=== PATIENT | male | born 1960 | race Caucasian/White ===

== ENCOUNTER → 2017-08-03 | Outpatient (CLI) | payer OTHER ==
[~2017-08-03] MED LIST: AXIRON TP; CHLO1CAP PEG; HYDR-3240 PO; HYDR-3245 PO; LINA290C PO; METH750T2 PO; MORPHINE; MORPHINE IR PO; OMEP-110 PO; PARO40TA61 PO; PRAV40TA2 PO; PREG150C PO; PROMETHAZINE PO; RISP0.5T3 PO; [UNRECOGNIZED DRUG - REMARK]
== END | disposition home or self-care (01) ==
LOC: CFH 08:00
PROVIDERS: ATTEND Registered Nurse Registered Nurse First Assistant
DX: M47.22 Other spondylosis with radiculopathy, cervical region (principal); M48.02 Spinal stenosis, cervical region
CPT/HCPCS: 72050; 72141

== ENCOUNTER → 2017-10-28 | Outpatient (CLI) | payer OTHER | END | disposition home or self-care (01) | LOC: CFH 14:47 | PROVIDERS: ATTEND Registered Nurse Registered Nurse First Assistant | DX: M54.16 Radiculopathy, lumbar region (principal); M40.47 Postural lordosis, lumbosacral region; M47.896 Other spondylosis, lumbar region | CPT/HCPCS: 72114; 72148 ==

== ENCOUNTER 2018-06-21 05:42 | Inpatient (IN) | payer OTHER ==
[~2018-06-21] VITALS: Ht 175.3 cm; Wt 81.4 kg
[~2018-06-21 05:42] MED LIST changes: +LINA145C PO; +TEST5GEL17 TP; +paxil PO; +statin PO
[2018-06-21] MEDS ORDERED: LACTATED RINGERS 1,000 ML IV SCH (06:06)
[2018-06-21] MEDS ORDERED: PREG150C PO (06:18)
[2018-06-21] MEDS ORDERED: LINA290C PO (06:18)
[2018-06-21] MEDS ORDERED: NICO-485 TD (06:18)
[2018-06-21] MEDS ORDERED: PARO40TA3 PO (06:18)
[2018-06-21] MEDS ORDERED: OMEP-110 PO (06:18)
[2018-06-21] MEDS ORDERED: PRAV40TA2 PO (06:18)
[2018-06-21] MEDS ORDERED: RISP1TAB3 PO (06:18)
[2018-06-21] MEDS ORDERED: ALPR0.254 PO (06:19)
[2018-06-21] MEDS ORDERED: THROMBIN 5,000 UNIT VIAL TP ONE (06:52)
[2018-06-21] MEDS ORDERED: BUPIVACAINE/PF-EPI 0.5% 1:200K ONE (06:52)
[2018-06-21] MEDS ORDERED: BACITRACIN 50,000 UNIT ONE (06:52)
[2018-06-21] MEDS ORDERED: FENTANYL PF 250 MCG/5ML ONE (07:23)
[2018-06-21] MEDS ORDERED: PROPOFOL 50 ML ONE (07:24)
[2018-06-21] MEDS ORDERED: PROCHLORPERAZINE 5 MG/ML, 2ML IV PRN (07:30)
[2018-06-21] MEDS ORDERED: HALOPERIDOL 5 MG/ML IV PRN ×2 (07:30)
[2018-06-21] MEDS ORDERED: hydrALAzine 20 MG/ML, 1ML IV PRN (07:30)
[2018-06-21] MEDS ORDERED: GABAPENTIN 300 MG CAPSULE PO ONE (07:30)
[2018-06-21] MEDS ORDERED: FENTANYL PF 100 MCG/2ML IV PRN (07:30)
[2018-06-21] MEDS ORDERED: HYDROmorphone 2 MG/ML, 1ML IVPush PRN (07:30)
[2018-06-21] MEDS ORDERED: MEPERIDINE/PF 25MG/0.5ML IVPush PRN (07:30)
[2018-06-21] MEDS ORDERED: PROMETHAZINE 25 MG/ML, 1ML IV PRN (07:30)
[2018-06-21] MEDS ORDERED: METOPROLOL 1 MG/ML, 5ML IV PRN (07:30)
[2018-06-21] MEDS ORDERED: LABETALOL 5MG/ML, 20ML IV PRN (07:30)
[2018-06-21] MEDS ORDERED: ACETAMINOPHEN 500 MG TABLET PO ONE (07:30)
[2018-06-21] MEDS ORDERED: OXYcodone 5 MG/5 ML ORAL.SOL UDC PO PRN (07:30)
[2018-06-21] MEDS ORDERED: DIPHENHYDRAMINE 50 MG/ML, 1ML IVPush PRN (07:30)
[2018-06-21] MEDS ORDERED: SUCCINYLCHOLINE 20 MG/ML, 10ML ONE (07:34)
[2018-06-21] MEDS ORDERED: CEFAZOLIN 1,000 MG ONE (07:34)
[2018-06-21] MEDS ORDERED: GLYCOPYRROLATE 0.2MG/1ML, 5ML ONE (07:34)
[2018-06-21] MEDS ORDERED: ROCURONIUM 10MG/ML,5ML ONE (07:34)
[2018-06-21] MEDS ORDERED: NEOSTIGMINE 1 MG/ML, 10ML ONE (07:34)
[2018-06-21] MEDS ORDERED: DEXAMETHASONE 4 MG/ML, 1ML ONE (07:34)
[2018-06-21] MEDS ORDERED: FENTANYL PF 100 MCG/2ML ONE (08:50)
[2018-06-21] MEDS ORDERED: OXYcodone/APAP 5/325MG TABLET PO PRN (09:30)
[2018-06-21] MEDS ORDERED: MEPERIDINE/PF 100 MG/ML IM PRN (09:30)
[2018-06-21] MEDS ORDERED: BISACODYL 10 MG SUPP PR PRN (09:30)
[2018-06-21] MEDS ORDERED: DIPHENHYDRAMINE 25 MG CAPSULE PO PRN (09:30)
[2018-06-21] MEDS ORDERED: HYDROmorphone PCA 30 MG/30 ML IV PRN (09:30)
[2018-06-21] MEDS ORDERED: TIZANIDINE 2MG TABLET PO PRN (09:30)
[2018-06-21] MEDS ORDERED: PROMETHAZINE 25 MG/ML, 1ML IM PRN (09:30)
[2018-06-21] MEDS ORDERED: ONDANSETRON 2MG/ML, 2ML IVPush PRN (09:30)
[2018-06-21] MEDS ORDERED: PHARMACY MAY ADJ FOR RENAL FX MC PRN (09:30)
[2018-06-21] MEDS ORDERED: HYDROcodone/APAP 10/325 MG TABLET PO PRN (09:30)
[2018-06-21] MEDS ORDERED: ALPRAZOLAM 0.25 MG PO PRN (09:30)
[2018-06-21] MEDS ORDERED: MAGNESIUM HYDROXIDE 8%, 30ML UDC PO PRN (09:30)
[2018-06-21] MEDS ORDERED: OXYcodone 5 MG/5 ML ORAL.SOL UDC ONE (10:08)
[2018-06-21 11:25] VITALS: BP 116/70
[2018-06-21] MEDS ORDERED: ALPRAZOLAM MC SCH (11:30)
[2018-06-21 12:56] VITALS: BP 112/71
[2018-06-21] MEDS: CEFAZOLIN PMX 1GM/50ML 50 ML IVPB SCH (16:46)
[2018-06-21] MEDS: NS + 20MEQ KCL 1,000 ML IV SCH (16:46)
[2018-06-21 20:09] VITALS: BP 114/73
[2018-06-21] MEDS: SODIUM CHLORIDE FLUSH 10ML SYR IVF SCH (21:15)
[2018-06-21] MEDS: PRAVASTATIN 40 MG TABLET PO SCH (21:15)
[2018-06-22 00:01] VITALS: BP 109/69
[2018-06-22] MEDS: CEFAZOLIN PMX 1GM/50ML 50 ML IVPB SCH (00:39)
[2018-06-22] MEDS: NS + 20MEQ KCL 1,000 ML IV SCH ×2 (03:19→15:04)
[2018-06-22 03:57] VITALS: BP 105/68
[2018-06-22] MEDS ORDERED: OMEPRAZOLE 20 MG CAPSULE.DR ONE (06:02)
[2018-06-22] MEDS: OMEPRAZOLE 20 MG CAPSULE.DR PO SCH (06:03)
[2018-06-22 07:45] VITALS: BP 109/69
[2018-06-22] MEDS: TEMPLATE NON-FORMULARY MED. (Linaclotide** (Linzess**) 290 MCG) PO SCH (09:00)
[2018-06-22] MEDS: SENNA/DOCUSATE TABLET PO SCH (09:00)
[2018-06-22] MEDS: SODIUM CHLORIDE FLUSH 10ML SYR IVF SCH ×2 (09:00→21:00)
[2018-06-22] MEDS: NICOTINE 7 MG/24 HR PATCH.TD24 TD SCH (09:30)
[2018-06-22] MEDS ORDERED: HYDROmorphone 2 MG/ML, 1ML ONE ×2 (12:42→17:19)
[2018-06-22] MEDS: HYDROmorphone 1 MG/ML, 1ML IVPush PRN ×2 (12:45→17:22)
[2018-06-22 13:34] VITALS: BP 128/80
[2018-06-22] MEDS ORDERED: METOCLOPRAMIDE 5 MG/ML, 2ML IVPush PRN (16:30)
[2018-06-22] MEDS ORDERED: SCOPOLAMINE PATCH, 1.5MG PATCH.TD72 TD ONE (16:30)
[2018-06-22 20:10] VITALS: BP 136/74
[2018-06-22] MEDS: PREGABALIN 150 MG CAPSULE PO SCH (22:00)
[2018-06-22] MEDS: RISPERIDONE 1 MG TABLET PO SCH (22:01)
[2018-06-22] MEDS: PAROXETINE 20 MG TABLET PO SCH (22:01)
[2018-06-22] MEDS: PRAVASTATIN 40 MG TABLET PO SCH (22:01)
[2018-06-23] MEDS: NS + 20MEQ KCL 1,000 ML IV SCH ×3 (00:11→20:56)
[2018-06-23] MEDS ORDERED: HYDROmorphone 2 MG/ML, 1ML ONE (02:25)
[2018-06-23] MEDS: HYDROmorphone 1 MG/ML, 1ML IVPush PRN (02:29)
[2018-06-23 02:35] VITALS: BP 123/76
[2018-06-23 07:00] VITALS: BP 117/72
[2018-06-23] MEDS: HYDROmorphone 2MG TABLET PO PRN ×3 (08:59→20:56)
[2018-06-23] MEDS: PREGABALIN 150 MG CAPSULE PO SCH (08:59)
[2018-06-23] MEDS: SENNA/DOCUSATE TABLET PO SCH (08:59)
[2018-06-23] MEDS: OMEPRAZOLE 20 MG CAPSULE.DR PO SCH (08:59)
[2018-06-23] MEDS: TEMPLATE NON-FORMULARY MED. (Linaclotide** (Linzess**) 290 MCG) PO SCH (09:00)
[2018-06-23] MEDS: PAROXETINE 20 MG TABLET PO SCH (09:00)
[2018-06-23] MEDS: RISPERIDONE 1 MG TABLET PO SCH (09:00)
[2018-06-23] MEDS: SODIUM CHLORIDE FLUSH 10ML SYR IVF SCH ×2 (09:00→20:57)
[2018-06-23] MEDS: NICOTINE 7 MG/24 HR PATCH.TD24 TD SCH (09:01)
[2018-06-23 13:34] VITALS: BP 94/61
[2018-06-23 20:00] VITALS: BP 103/66
[2018-06-23] MEDS: PRAVASTATIN 40 MG TABLET PO SCH (20:56)
[2018-06-23] MEDS ORDERED: PAROXETINE 20 MG TABLET PO SCH (21:00)
[2018-06-23] MEDS ORDERED: RISPERIDONE 1 MG TABLET PO SCH (21:00)
[2018-06-24 00:45] VITALS: BP 109/66
[2018-06-24] MEDS: HYDROmorphone 2MG TABLET PO PRN (05:31)
[2018-06-24] MEDS: NS + 20MEQ KCL 1,000 ML IV SCH (07:00)
[2018-06-24 07:05] VITALS: BP 126/85
[2018-06-24] MEDS: PREGABALIN 150 MG CAPSULE PO SCH (08:27)
[2018-06-24] MEDS: OMEPRAZOLE 20 MG CAPSULE.DR PO SCH (08:27)
[2018-06-24] MEDS: SENNA/DOCUSATE TABLET PO SCH (08:28)
[2018-06-24] MEDS: NICOTINE 7 MG/24 HR PATCH.TD24 TD SCH (08:30)
[2018-06-24] MEDS: SODIUM CHLORIDE FLUSH 10ML SYR IVF SCH (08:34)
[2018-06-24] MEDS: TEMPLATE NON-FORMULARY MED. (Linaclotide** (Linzess**) 290 MCG) PO SCH (08:34)
[2018-06-24] MEDS ORDERED: HYDR2TAB29 PO (09:19)
[2018-06-24] MEDS ORDERED: TIZA2CAP2 PO (09:21)
[2018-06-24 09:49] VITALS: BP 132/81
== END 2018-06-24 10:33 | disposition home or self-care (01) | DRG 460 ==
LOC: ORIP 05:42 → 4NOR 11:16 → DCLOUNGE 06-24 10:22
PROVIDERS: ADMIT Neurological Surgery; ATTEND Neurological Surgery
PROC: 0SB40ZZ Excision of Lumbosacral Disc, Open Approach (ICD-10-PCS; 2018-06-21)
PROC: 3E0U0GB Introduction of Recombinant Bone Morphogenetic Protein into Joints, Open Approach (ICD-10-PCS; 2018-06-21)
PROC: 4A11X4G Monitoring of Peripheral Nervous Electrical Activity, Intraoperative, External Approach (ICD-10-PCS; 2018-06-21)
PROC: 0SG30A0 Fusion of Lumbosacral Joint with Interbody Fusion Device, Anterior Approach, Anterior Column, Open Approach (ICD-10-PCS; principal; 2018-06-21 07:30)
DX: M51.17 Intervertebral disc disorders with radiculopathy, lumbosacral region (principal); K50.90 Crohn's disease, unspecified, without complications; Z88.6 Allergy status to analgesic agent; F12.20 Cannabis dependence, uncomplicated; Z87.891 Personal history of nicotine dependence; K21.9 Gastro-esophageal reflux disease without esophagitis; E78.5 Hyperlipidemia, unspecified; F29 Unspecified psychosis not due to a substance or known physiological condition
CPT/HCPCS: 36415; 72100; 74018; J3490; 86850; 86900; 95938; 95941; C1713; C1776; G0378; J0690; J1100; J1170; J2405; J2550; J2704; J2710; J3010; J3480; C1762; J0330; J2765; J7120

== ENCOUNTER 2018-11-03 10:47 | Outpatient (CLI) | payer OTHER | END 2018-11-03 23:59 | disposition home or self-care (01) | LOC: RAD 10:47 | PROVIDERS: ATTEND Neurological Surgery | DX: M43.27 Fusion of spine, lumbosacral region (principal) | CPT/HCPCS: 72110; 72114 ==

== ENCOUNTER 2019-03-28 11:05 | Outpatient (CLI) | payer OTHER ==
[~2019-03-28 11:05] MED LIST changes: +ALPR0.254 PO; +HYDR2TAB29 PO; +NICO-485 TD; +PARO40TA3 PO; +RISP1TAB3 PO; +TIZA2CAP2 PO
[2019-03-28 12:20] LABS: BASOPHILS # (AUTO) 0.05 x10^3/uL (0-0.1); BASOPHILS % (AUTO) 1 % (0-1); EOSINOPHILS # (AUTO) 0.15 x10^3/uL (0-0.4); EOSINOPHILS % (AUTO) 1 % (1-7); LYMPHOCYTES # (AUTO) 2.85 x10^3/uL (1-3.4); LYMPHOCYTES % (AUTO) 27 % (22-44); MD NO; MEAN CORPUSCULAR HEMOGLOBIN 31.2 pg (27.5-34.5); MEAN CORPUSCULAR HGB CONC 32.7 g/dL (33.2-36.2); MEAN CORPUSCULAR VOLUME 95.3 fL (81-97); MEAN PLATELET VOLUME 8.5 fL (7.4-10.4); MONOCYTES # (AUTO) 0.62 x10^3/uL (0.2-0.8); MONOCYTES % (AUTO) 6 % (2-9); NEUTROPHILS # (AUTO) 7.06 x10^3/uL (1.8-6.8); NEUTROPHILS % (AUTO) 66 % (42-75); PLATELET COUNT 262 x10^3/uL (130-400); RED BLOOD COUNT 5.09 x10^6/uL (4.38-5.82); RED CELL DISTRIBUTION WIDTH 13.4 % (9.4-14.8)
[2019-03-28 12:27] LABS: MICROSCOPIC AUTO
[2019-03-28 12:31] LABS: INTERNATIONAL NORMALIZED RATIO 1.04 (0.93-1.1); PROTHROMBIN TIME 10.9 Seconds (9.6-11.5)
[2019-03-28 12:37] LABS: CHLORIDE 106 mmol/L (98-107)
[2019-03-28 12:40] LABS: CULTURE INDICATED? NO
[2019-03-28 12:59] LABS: ALANINE AMINOTRANSFERASE 38 U/L (12-78); ALBUMIN 4.4 g/dL (3.4-5.0); ALKALINE PHOSPHATASE 87 U/L (45-117); ANION GAP 5 mmol/L (5-15); BILIRUBIN,TOTAL 0.5 mg/dL (0.2-1.0); CALCIUM 9.4 mg/dL (8.5-10.1); CREATININE 1.21 mg/dL (0.7-1.3); TOTAL PROTEIN 8.1 g/dL (6.4-8.2)
== END 2019-03-28 23:59 | disposition home or self-care (01) ==
LOC: STAR 11:05
PROVIDERS: ATTEND Neurological Surgery
DX: Z01.811 Encounter for preprocedural respiratory examination (principal); M50.20 Other cervical disc displacement, unspecified cervical region
CPT/HCPCS: 36415; 71046; 80053; 81001; 85025; 85610; 85730; 93005

== ENCOUNTER 2019-04-06 12:49 | Inpatient (IN) | payer OTHER ==
[~2019-04-06] VITALS: Ht 175.3 cm; Wt 74.0 kg
--- NOTE | 2019-04-06 15:32 | NUR ---
LENS CUTTER: PT TO ROOM FROM THERESA REYES
--- NOTE | 2019-04-06 16:30 | NUR ---
ERMD AT BEDSIDE FOR EVALUATION
[2019-04-06] MEDS ORDERED: MORPHINE SULFATE 4 MG/ML, 1ML ONE ×2 (16:56→19:12)
[2019-04-06] MEDS ORDERED: ONDANSETRON 2MG/ML, 2ML ONE ×2 (16:56→19:12)
[2019-04-06] MEDS ORDERED: SODIUM CHLORIDE 0.9% 1,000ML IVBOLUS ONE ×2 (17:00→19:00)
[2019-04-06] MEDS ORDERED: SODIUM CHLORIDE FLUSH 10ML SYR IVF ONE (17:00)
[2019-04-06] MEDS ORDERED: MORPHINE SULFATE 4 MG/ML, 1ML IVPush PRN ×2 (17:00→19:00)
[2019-04-06] MEDS ORDERED: ONDANSETRON 2MG/ML, 2ML IVPush ONE ×2 (17:00→19:30)
[2019-04-06 17:25] LABS: MEAN CORPUSCULAR HGB CONC 32.8 g/dL (33.2-36.2); MEAN CORPUSCULAR VOLUME 94.5 fL (81-97); MEAN PLATELET VOLUME 9.2 fL (7.4-10.4); PLATELET COUNT 288 x10^3/uL (130-400); RED BLOOD COUNT 5.26 x10^6/uL (4.38-5.82); RED CELL DISTRIBUTION WIDTH 12.9 % (9.4-14.8)
[2019-04-06 17:32] LABS: ALANINE AMINOTRANSFERASE 22 U/L (12-78); ALBUMIN 4.3 g/dL (3.4-5.0); ANION GAP 11 mmol/L (5-15); CALCIUM 10.1 mg/dL (8.5-10.1); CHLORIDE 107 mmol/L (98-107)
[2019-04-06 17:35] LABS: ALKALINE PHOSPHATASE 105 U/L (45-117); BILIRUBIN,TOTAL 0.7 mg/dL (0.2-1.0); TOTAL PROTEIN 8.7 g/dL (6.4-8.2)
--- NOTE | 2019-04-06 17:38 | NUR ---
RESTING IN BED, CALL LIGHT IN REACH
[2019-04-06 17:44] LABS: MICROSCOPIC AUTO
[2019-04-06 17:48] LABS: CULTURE INDICATED? YES
[2019-04-06 17:53] LABS: BASOPHILS # (AUTO) 0.23 x10^3/uL (0-0.1); BASOPHILS % (AUTO) 1 % (0-1); EOSINOPHILS # (AUTO) 0.01 x10^3/uL (0-0.4); EOSINOPHILS % (AUTO) 0 % (1-7); LYMPHOCYTES # (AUTO) 0.96 x10^3/uL (1-3.4); LYMPHOCYTES % (AUTO) 5 % (22-44); MD SCAN; MONOCYTES # (AUTO) 0.37 x10^3/uL (0.2-0.8); MONOCYTES % (AUTO) 2 % (2-9); NEUTROPHILS # (AUTO) 17.51 x10^3/uL (1.8-6.8); NEUTROPHILS % (AUTO) 92 % (42-75)
--- NOTE | 2019-04-06 18:30 | NUR ---
PT RESTING IN BED, CALL LIGHT IN REACH
--- NOTE | 2019-04-06 18:59 | NUR ---
REPORT RECIEVED FROM RN. PT RESTING COMFORTABLY.
--- NOTE | 2019-04-06 19:01 | NUR ---
Noemy dubois in ED - 04/06/19 at 1902 by MOE REPORT RECEIVED FROM CARLITOS. PT RESTING COMFORTABLY.
[2019-04-06] MEDS ORDERED: GABA300C10 PO (20:14)
--- NOTE | 2019-04-06 20:32 | NUR ---
REPORT CALLED TO MACHINE ATTENDANT. PT TRANSPORTED TO FLOOR WITH TECH.
[2019-04-06 22:30] VITALS: BP 155/91
[2019-04-06] MEDS ORDERED: TEMAZEPAM 15 MG CAPSULE PO PRN (23:30)
[2019-04-06] MEDS ORDERED: HEPARIN 5,000 UNITS/ML, 1ML SQ SCH (23:30)
[2019-04-06] MEDS ORDERED: ONDANSETRON 2MG/ML, 2ML IVPush PRN (23:30)
[2019-04-06] MEDS ORDERED: ACETAMINOPHEN 325 MG TABLET PO PRN (23:30)
[2019-04-06] MEDS ORDERED: LORazepam 2 MG/ML, 1ML IVPush PRN (23:30)
[2019-04-06] MEDS ORDERED: MORPHINE SULFATE 4 MG/ML, 1ML IVPush ONE (23:30)
[2019-04-06] MEDS ORDERED: BISACODYL 10 MG SUPP PR PRN (23:30)
[2019-04-06] MEDS ORDERED: HYDROcodone/APAP 5/325 TABLET PO PRN (23:30)
[2019-04-06] MEDS ORDERED: LABETALOL 5 MG/ML SYR. (IV ONLY) IVPush PRN (23:30)
[2019-04-06] MEDS: SODIUM CHLORIDE 0.9% 1,000 ML IV SCH (23:34)
[2019-04-07] MEDS ORDERED: PHARMACY MAY ADJ FOR RENAL FX MC PRN
[2019-04-07 00:09] VITALS: BP 101/62
[2019-04-07] MEDS: METRONIDAZOLE PMX 500MG/100ML 100 ML IV SCH ×2 (00:14→09:58)
[2019-04-07] MEDS: CIPROFLOXACIN/PMX 400MG/200ML 200 ML IV SCH (01:53)
[2019-04-07 06:37] LABS: BASOPHILS # (AUTO) 0.04 x10^3/uL (0-0.1); BASOPHILS % (AUTO) 0 % (0-1); EOSINOPHILS # (AUTO) 0.01 x10^3/uL (0-0.4); EOSINOPHILS % (AUTO) 0 % (1-7); LYMPHOCYTES # (AUTO) 1.82 x10^3/uL (1-3.4); LYMPHOCYTES % (AUTO) 11 % (22-44); MD NO; MEAN CORPUSCULAR HEMOGLOBIN 30.9 pg (27.5-34.5); MEAN CORPUSCULAR HGB CONC 33.3 g/dL (33.2-36.2); MEAN CORPUSCULAR VOLUME 92.9 fL (81-97); MEAN PLATELET VOLUME 9.1 fL (7.4-10.4); MONOCYTES # (AUTO) 1.23 x10^3/uL (0.2-0.8); MONOCYTES % (AUTO) 8 % (2-9); NEUTROPHILS % (AUTO) 81 % (42-75); PLATELET COUNT 241 x10^3/uL (130-400); RED BLOOD COUNT 4.49 x10^6/uL (4.38-5.82); RED CELL DISTRIBUTION WIDTH 12.8 % (9.4-14.8)
[2019-04-07 06:50] LABS: ANION GAP 8 mmol/L (5-15); CALCIUM 8.7 mg/dL (8.5-10.1); CHLORIDE 110 mmol/L (98-107); CREATININE 1.09 mg/dL (0.7-1.3)
[2019-04-07 08:25] VITALS: BP 134/79
[2019-04-07] MEDS: morphine SULFATE 10 MG/ML, 1ML IVPush PRN (10:32)
[2019-04-07] MEDS ORDERED: NICOTINE 21 MG/24 HR PATCH.TD24 TD ONE (12:30)
[2019-04-07 13:35] VITALS: BP 108/53
[2019-04-07] MEDS ORDERED: RISP1TAB3 PO (14:32)
[2019-04-07] MEDS ORDERED: PREG150C44 PO (14:32)
[2019-04-07 21:51] VITALS: BP 114/73
[2019-04-08] MEDS: morphine SULFATE 10 MG/ML, 1ML IVPush PRN ×3 (00:32→08:57)
[2019-04-08 01:51] VITALS: BP 122/78
[2019-04-08] MEDS: METRONIDAZOLE PMX 500MG/100ML 100 ML IV SCH (01:55)
[2019-04-08] MEDS: CIPROFLOXACIN/PMX 400MG/200ML 200 ML IV SCH (03:22)
[2019-04-08] MEDS: SODIUM CHLORIDE 0.9% 1,000 ML IV SCH (03:22)
[2019-04-08 07:41] LABS: MEAN CORPUSCULAR HEMOGLOBIN 31.1 pg (27.5-34.5); MEAN CORPUSCULAR HGB CONC 33.2 g/dL (33.2-36.2); MEAN CORPUSCULAR VOLUME 93.8 fL (81-97); MEAN PLATELET VOLUME 8.3 fL (7.4-10.4); PLATELET COUNT 225 x10^3/uL (130-400); RED CELL DISTRIBUTION WIDTH 12.9 % (9.4-14.8)
[2019-04-08 07:49] LABS: ANION GAP 6 mmol/L (5-15); CALCIUM 9.1 mg/dL (8.5-10.1); CHLORIDE 109 mmol/L (98-107); CREATININE 1.23 mg/dL (0.7-1.3)
[2019-04-08 07:59] LABS: BASOPHILS % (AUTO) 1 % (0-1); EOSINOPHILS # (AUTO) 0.07 x10^3/uL (0-0.4); EOSINOPHILS % (AUTO) 1 % (1-7); LYMPHOCYTES # (AUTO) 2.19 x10^3/uL (1-3.4); LYMPHOCYTES % (AUTO) 19 % (22-44); MD NO; MONOCYTES # (AUTO) 0.93 x10^3/uL (0.2-0.8); MONOCYTES % (AUTO) 8 % (2-9); NEUTROPHILS % (AUTO) 71 % (42-75)
[2019-04-08 08:20] VITALS: BP 140/86
[2019-04-08] MEDS ORDERED: PAROXETINE 20 MG TABLET PO SCH (09:00)
[2019-04-08] MEDS ORDERED: GABAPENTIN 300 MG CAPSULE PO SCH (09:00)
[2019-04-08] MEDS ORDERED: PREGABALIN 150 MG CAPSULE PO SCH (09:00)
[2019-04-08] MEDS ORDERED: METRONIDAZOLE PMX 500MG/100ML 100 ML IV SCH (10:00)
[2019-04-08] MEDS ORDERED: CIPROFLOXACIN/PMX 400MG/200ML 200 ML IV SCH (15:30)
== END 2019-04-08 10:37 | disposition home or self-care (01) | DRG 385 ==
LOC: ED 14:32 → EDIP 19:19 → 3N 20:32 → DCLOUNGE 04-08 10:33
PROVIDERS: ADMIT Internal Medicine; ATTEND Internal Medicine
DX: K50.00 Crohn's disease of small intestine without complications (principal); N17.0 Acute kidney failure with tubular necrosis; R65.10 Systemic inflammatory response syndrome (SIRS) of non-infectious origin without acute organ dysfunction; D72.829 Elevated white blood cell count, unspecified; E78.00 Pure hypercholesterolemia, unspecified; F12.90 Cannabis use, unspecified, uncomplicated; F17.200 Nicotine dependence, unspecified, uncomplicated; F32.9 Major depressive disorder, single episode, unspecified; F41.9 Anxiety disorder, unspecified; Z88.8 Allergy status to other drugs, medicaments and biological substances; Z83.3 Family history of diabetes mellitus; Z98.1 Arthrodesis status
CPT/HCPCS: 36415; 80048; 80053; 81001; 83690; 85025; 87086; 96361; 96374; 96375; 96376; G0378; J0744; J2405; J2060; J2270; J7030

== ENCOUNTER 2019-04-11 07:06 | Day surgery (SDC) | payer OTHER ==
[~2019-04-11] VITALS: Ht 175.3 cm; Wt 76.0 kg
[~2019-04-11 07:06] MED LIST changes: +GABA300C10 PO; +PREG150C44 PO
[2019-04-11] MEDS ORDERED: BUPIVACAINE/PF 0.5% ONE (07:31)
[2019-04-11] MEDS ORDERED: BACITRACIN 50,000 UNIT ONE (07:31)
[2019-04-11] MEDS ORDERED: THROMBIN 5,000 UNIT VIAL TP ONE (07:31)
[2019-04-11] MEDS ORDERED: EPINEPHRINE 1 MG/ML, 1ML ONE (07:31)
[2019-04-11] MEDS ORDERED: LACTATED RINGERS 1,000 ML IV SCH (07:33)
[2019-04-11 07:35] VITALS: BP 107/63
[2019-04-11] MEDS ORDERED: ACETAMINOPHEN 500 MG TABLET ONE (07:41)
[2019-04-11] MEDS ORDERED: GABAPENTIN 300 MG CAPSULE ONE (07:42)
[2019-04-11] MEDS ORDERED: LIDOCAINE-MPF 1%, 2ML INFIL ONE (08:00)
[2019-04-11] MEDS ORDERED: ACETAMINOPHEN 500 MG TABLET PO ONE (08:00)
[2019-04-11] MEDS ORDERED: GABAPENTIN 300 MG CAPSULE PO ONE (08:00)
[2019-04-11] MEDS ORDERED: MIDAZOLAM 1 MG/ML, 2ML ONE (08:35)
[2019-04-11] MEDS ORDERED: FENTANYL PF 250 MCG/5ML ONE ×2 (08:35→10:44)
[2019-04-11] MEDS ORDERED: ROCURONIUM 10MG/ML,5ML ONE (08:36)
[2019-04-11] MEDS ORDERED: PROPOFOL 10 MG/ML, 20ML ONE (08:36)
[2019-04-11] MEDS ORDERED: CEFAZOLIN 1,000 MG ONE ×2 (08:36→10:23)
[2019-04-11] MEDS ORDERED: SUCCINYLCHOLINE 20 MG/ML, 10ML ONE (08:36)
[2019-04-11] MEDS ORDERED: NEOSTIGMINE 1 MG/ML, 10ML ONE (08:36)
[2019-04-11] MEDS ORDERED: PROPOFOL 50 ML ONE ×2 (08:36)
[2019-04-11] MEDS ORDERED: GLYCOPYRROLATE 0.2MG/1ML, 5ML ONE (08:36)
[2019-04-11] MEDS ORDERED: ROCURONIUM 10 MG/ML,10ML ONE (10:23)
[2019-04-11] MEDS ORDERED: PHENYLEPHRINE 10 MG/ML ONE (10:23)
[2019-04-11] MEDS ORDERED: PROPOFOL 10 MG/ML, 50ML ONE (10:23)
[2019-04-11] MEDS ORDERED: VASOPRESSIN 20 UNIT/ML, 1ML ONE ×2 (10:23→10:50)
[2019-04-11] MEDS ORDERED: HYDROmorphone 2 MG/ML, 1ML IVPush PRN (10:30)
[2019-04-11] MEDS ORDERED: MEPERIDINE/PF 25MG/ML,1ML IVPush PRN (10:30)
[2019-04-11] MEDS ORDERED: hydrALAzine 20 MG/ML, 1ML IV PRN (10:30)
[2019-04-11] MEDS ORDERED: OXYcodone 5 MG/5 ML ORAL.SOL UDC PO PRN (10:30)
[2019-04-11] MEDS ORDERED: ONDANSETRON ODT 8 MG PO PRN (10:30)
[2019-04-11] MEDS ORDERED: LABETALOL 5MG/ML, 20ML IV PRN (10:30)
[2019-04-11] MEDS ORDERED: MORPHINE SULFATE 4 MG/ML, 1ML IVPush PRN (10:30)
[2019-04-11] MEDS ORDERED: PHARMACY INSTRUCTION MC SCH (12:00)
[2019-04-11] MEDS ORDERED: HYDROmorphone 1 MG/ML, 1ML INJ IVPush PRN (12:00)
[2019-04-11] MEDS ORDERED: HYDROmorphone 2MG TABLET PO PRN (12:00)
[2019-04-11] MEDS ORDERED: NS + 20MEQ KCL 1,000 ML IV SCH (12:00)
[2019-04-11] MEDS ORDERED: DIPHENHYDRAMINE 50 MG/ML, 1ML IVPush PRN (12:00)
[2019-04-11] MEDS ORDERED: MAGNESIUM HYDROXIDE 8%, 30ML UDC PO PRN (12:00)
[2019-04-11] MEDS ORDERED: ONDANSETRON 2MG/ML, 2ML IVPush PRN (12:00)
[2019-04-11] MEDS ORDERED: PHARMACY MAY ADJ FOR RENAL FX MC PRN (12:00)
[2019-04-11] MEDS ORDERED: CYCLOBENZAPRINE 10 MG TABLET PO PRN (12:00)
[2019-04-11] MEDS ORDERED: POLYETHYLENE GLYCOL 17 GM PACKET NG PRN (12:00)
[2019-04-11] MEDS ORDERED: CEFAZOLIN PMX 1GM/50ML 50 ML IVPB SCH (12:00)
[2019-04-11] MEDS ORDERED: SENNA/DOCUSATE TABLET PO PRN (12:00)
[2019-04-11] MEDS ORDERED: DIAZEPAM 5 MG TABLET PO PRN (12:00)
[2019-04-11] MEDS ORDERED: BISACODYL 10 MG SUPP PR PRN (12:00)
[2019-04-11] MEDS ORDERED: PROMETHAZINE 25 MG/ML, 1ML IM PRN (12:00)
[2019-04-11] MEDS: FENTANYL PF 100 MCG/2ML IV PRN ×2 (12:30→12:50)
[2019-04-11] MEDS ORDERED: FENTANYL PF 100 MCG/2ML ONE (12:32)
[2019-04-11] MEDS ORDERED: OXYcodone 5 MG/5 ML ORAL.SOL UDC ONE (12:32)
[2019-04-11] MEDS ORDERED: GABAPENTIN 300 MG CAPSULE PO SCH (21:00)
[2019-04-11] MEDS ORDERED: PREGABALIN 150 MG CAPSULE PO SCH (21:00)
[2019-04-11] MEDS ORDERED: RISPERIDONE 1 MG TABLET PO SCH (21:00)
[2019-04-11] MEDS ORDERED: SODIUM CHLORIDE FLUSH 10ML SYR IVF SCH (21:00)
[2019-04-12] MEDS ORDERED: TEMPLATE NON-FORMULARY MED. (Linaclotide** (Linzess**) 290 MCG) PO SCH (09:00)
[2019-04-12] MEDS ORDERED: PAROXETINE HCL 40 MG PO SCH (09:00)
== END 2019-04-11 15:05 | disposition home or self-care (01) ==
LOC: OUT 07:06
PROVIDERS: ATTEND Neurological Surgery
DX: M50.122 Cervical disc disorder at C5-C6 level with radiculopathy (principal); M25.78 Osteophyte, vertebrae; E78.2 Mixed hyperlipidemia; Z79.899 Other long term (current) drug therapy; Z88.5 Allergy status to narcotic agent; Z91.011 Allergy to milk products; Z98.1 Arthrodesis status
CPT/HCPCS: 20930; 20936; 22551; 22845; 22853; 72040; 95938; 95941; C1713; C1762; C1776; J0171; J0330; J0690; J2250; J2370; J2704; J2710; J3010; J7120